=== PATIENT | male | born 1955 | race African-American/Black ===

== ENCOUNTER 2023-10-06 20:49 | Emergency (ER) | payer OTHER ==
[~2023-10-06] VITALS: Ht 175.3 cm; Wt 72.0 kg
[2023-10-06 21:04] VITALS: O2SAT 98
[2023-10-06 22:55] LABS: BASOPHILS % 0.8 % (0.0-2.0); EOSINOPHILS % 6.8 % (0.0-5.0); HEMATOCRIT. 29.8 % (42.0-52.0); HEMOGLOBIN. 9.7 g/dL (14.0-18.0); LYMPHOCYTES % 34.4 % (20.0-50.0); MEAN CORPUSCULAR HEMOGLOBIN 26.3 pg (28.0-32.0); MEAN CORPUSCULAR HGB CONC 32.6 g/dL (31.0-37.0); MEAN CORPUSCULAR VOLUME 80.8 fL (80.0-94.0); MEAN PLATELET VOLUME 7.5 fl (7.4-10.4); MONOCYTES % 12.6 % (2.0-8.0); NEUTROPHILS % 45.4 % (40.0-76.0); PLATELET 311 x1000/uL (130-400); RED BLOOD CELL COUNT 3.68 mill/uL (4.7-6.1); RED CELL DISTRIBUTION WIDTH 17.3 % (11.6-14.6); WHITE BLOOD COUNT 4.4 x1000/uL (4.5-11.0)
[2023-10-06 22:56] LABS: PROTHROMBIN TIME 10.7 sec (9.6-11.0)
[2023-10-06 23:07] LABS: ALANINE AMINOTRANSFERASE 16 IU/L (10-49); ALBUMIN 4.1 g/dL (3.2-4.8); ASPARTATE AMINOTRANSFERASE 22 IU/L (<34); BILIRUBIN TOTAL 0.3 mg/dL (0.1-1.0); CALCIUM 8.5 mg/dL (8.7-10.4); CARBON DIOXIDE 29 mEq/L (21-32); CHLORIDE 107 mEq/L (98-107); CREATININE 0.9 mg/dL (0.6-1.3); GLUCOSE 96 mg/dL (70-105); POTASSIUM 3.8 mEq/L (3.5-5.1); PROTEIN TOTAL 6.4 g/dL (6.0-8.3); SODIUM 139 mEq/L (136-145); UREA NITROGEN BLOOD 17 mg/dL (9-23)
[2023-10-06 23:09] LABS: TROPONIN I HIGH SENSITIVITY 83 ng/L (3.0-53)
[2023-10-07] MEDS: ASPIRIN 325MG EC TABLET PO NR (03:14)
[2023-10-07] MEDS: ENOXAPARIN 80MG/0.8ML SYR SUBCUT NR (03:14)
[2023-10-07 04:44] VITALS: BP 141/83; PULSE 78; RESP 12; TEMP 97.5
== END 2023-10-07 05:27 | disposition short-term general hospital (02) ==
LOC: ER 20:49 → EDBEDREQ 10-07 00:53 → ER 10-07 05:27
DX: R10.30 Lower abdominal pain, unspecified (principal); R11.2 Nausea with vomiting, unspecified; R41.82 Altered mental status, unspecified
CPT/HCPCS: 99285; 71045; 80053; 83690; 85025; 85610; 84484; 36415; 93005; 70450; 74176; 96372; J1650